=== PATIENT | female | born 1965 | race Caucasian/White ===

== ENCOUNTER → 2017-09-08 | Outpatient (CLI) | payer BC ==
[2017-09-08 09:23] VITALS: BP 112/65; PULSE 63; TEMP 96.9; BMI 23.5
--- NOTE | 2017-09-08 10:01 | P.HPOB ---
History of Present Illness H&P Date: 09/08/17 Chief Complaint: The patient is here for her routine gynecologic exam and mammogram. This is a 52-year-old G3 PIII with an LMP of 08/13/2017. Her 's status post vasectomy. She is here to establish with this office. The patient's menses are monthly but can fluctuate by up to one week. Her periods are french comber since her endometrial ablation done approximately in 2007. She is without gynecologic complaints. Review of Systems The patient's weight has been stable over the last year. She denies respiratory , cardiac, or G.I. problems. Past Medical History Additional Past Medical History / Comment(s): Pituitary adenoma since about [address] Reanna Rodriguez. 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 She has been using Pristiq for PMDD/PMS. She status post endometrial ablation. History of Any Multi-Drug Resistant Organisms: None Reported Past Surgical History: No Surgical Hx Reported, Ablation (Endometrial 2007), Breast Surgery (Saline implants) Additional Past Surgical History / Comment(s): LASIK eye surgery, foot surgery. Additional Psychological History / Comment(s): PMDD/PMS Smoking Status: Former smoker (Quit in her 20s) Past Alcohol Use History: Occasional (Less than one per week) Past Drug Use History: None Reported Additional History: She has been since 2015 and this is her 2nd marriage. 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. - Past Family History Mother Family Medical History: No Reported History Additional Family Medical History / Comment(s): Maternal aunt and maternal grandmother had breast cancer. Medications and Allergies Home Medications Medication Instructions Recorded Confirmed Type Desloratadine/Pseudoephedrine 1 tab PO DAILY 11/30/16 09/08/17 History [Clarinex-D 12 Hour Tablet] Dhea 5mg 5 mg PO DAILY 11/30/16 09/08/17 History Dostinex 0.5mg 0.5 mg PO SA 11/30/16 09/08/17 History Multivitamins, Thera [Multivitamin 1 tab PO DAILY 11/30/16 09/08/17 History (formulary)] [place]-3 Acid Ethyl Esters [Lovaza] 2 gm PO BID 11/30/16 09/08/17 History metroNIDAZOLE [Flagyl] 250 mg PO TID 11/30/16 09/08/17 History ALPRAZolam [Xanax] mg PO PRN 09/08/17 History Desvenlafaxine Succinate [Pristiq] mg PO DAILY 09/08/17 History Allergies Allergy/AdvReac Type Severity Reaction Status Date / Time No Known Allergies Allergy Verified 11/30/16 10:50 Exam Vital Signs Temp Pulse BP 09/08/17 09:17 96.9 F L 63 112/65 Intake and Output 09/07/17 09/08/17 09/08/17 22:59 06:59 14:59 Other: Weight 62.142 kg Height 5'4", BMI 23.5. This is a well-developed well-nourished white female who is alert and oriented times 3 in no acute distress. HEENT: Within normal limits. NECK: Supple without mass or thyromegaly. CHEST AND LUNGS: Clear to auscultation. HEART: Regular rate and rhythm. BREASTS: Are without mass or discharge. Breasts are consistent with bilateral implants. AXILLARY EXAM: Negative for adenopathy. BACK: Negative for CVA tenderness. ABDOMEN: Soft, nontender, without palpable masses. PELVIC EXAM: Normal external genitalia. Cervix and vagina appear normal with minimal atrophy. There is no unusual discharge. There is no evidence of prolapse. The uterus is midposition, nongravid size and nontender. There are no palpable adnexal masses or tenderness. RECTAL EXAM: rectovaginal exam is negative for mass or tenderness and is negative for occult blood. EXTREMITIES: Nontender. IMPRESSION: 1. 60-year-old premenopausal female with normal gynecologic exam who is status post endometrial ablation. 2. The patient's is status post vasectomy. 3. History of pituitary adenoma controlled with medication and followed by Dr. Reanna Rodriguez. PLAN: 1. Pap smear was performed. 2. Self breast awareness was discussed. 3. Screening mammogram will be done today. 4. Osteoporosis prevention was discussed. 5. I have recommended screening colonoscopy based on her age. She states she will absolutely by her primary care office. 6. She will return in one year.
--- NOTE | 2017-09-09 11:34 | MM ---
Reason for exam: screening (asymptomatic). Last mammogram was performed 1 year and 7 months ago. History: Family history of breast cancer in maternal grandmother and breast cancer in maternal aunt at age 60. Saline implants in both breasts, 2002. Took hormonal contraceptives for 5 years. Physical Findings: A clinical breast exam by your physician is recommended on an annual basis and results should be correlated with mammographic findings. MG Screening Mammo Implant/CAD Bilateral CC, MLO, and ID view(s) were taken. Prior study comparison: February 05, 2016, bilateral MG screening mammo implant/CAD. December 26, 2014, bilateral MG 3d diag mammo imp w/cad IGNACIO. The breast tissue is heterogeneously dense. This may lower the sensitivity of mammography. No suspicious abnormality. Bilateral retropectoral saline implants. No significant changes when compared with prior studies. ASSESSMENT: Negative, BI-RAD 1 RECOMMENDATION: Routine screening mammogram of both breasts in 1 year.
== END | disposition home or self-care (01) ==
LOC: WWCWWP 08:54
PROVIDERS: ATTEND Obstetrics & Gynecology
DX: Z12.31 Encounter for screening mammogram for malignant neoplasm of breast (principal)
CPT/HCPCS: 77067

== ENCOUNTER → 2018-03-07 | Outpatient (CLI) | payer BC ==
--- NOTE | 2018-03-07 15:07 | US ---
EXAMINATION TYPE: US mass soft tissue chest/back DATE OF EXAM: 03/07/2018 COMPARISON: NONE CLINICAL HISTORY: 53-year-old female R19.09 intra-abdominal and pelvic swelling, mass and lump. TECHNIQUE: Multiple sonographic images targeted to the palpable site along the right anterior thoraco abdominal junction. FINDINGS: Incident Response Engineer notes: Patient has a superficial, palpable abnormality along the right anterior thoracoab dominal junction measuring 1.5 x 0.3 x 1.0cm. This appears to be ovoid and heterogeneous echogenic wi th some posterior through transmission. It appears centered within the subcutaneous adipose layer. IMPRESSION: A circumscribed 1.5 x 1.0 cm echogenic lesion centered in the subcutaneous adipose layer at the patie nt's palpable site, right anterior thoracoabdominal junction. Findings suggest possible subcutaneous lipoma. Surgical excision can be considered if the site is symptomatic or growth is noted.
== END | disposition home or self-care (01) ==
LOC: RADUSWWP 10:51
PROVIDERS: ATTEND Family Medicine
DX: R19.09 Other intra-abdominal and pelvic swelling, mass and lump (principal)

== ENCOUNTER 2018-12-26 13:21 | Emergency (ER) | payer BC, OTHER ==
[2018-12-26 13:28] VITALS: BP 136/88; PULSE 91; RESP 20; TEMP 97.8
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
== END 2018-12-26 14:10 | disposition home or self-care (01) ==
LOC: EC 13:21
DX: S00.12XA Contusion of left eyelid and periocular area, initial encounter (principal); Z87.891 Personal history of nicotine dependence; Z86.018 Personal history of other benign neoplasm; W22.8XXA Striking against or struck by other objects, initial encounter; Y92.69 Other specified industrial and construction area as the place of occurrence of the external cause; Y99.0 Civilian activity done for income or pay
CPT/HCPCS: 99283

== ENCOUNTER → 2019-01-19 | Outpatient (CLI) | payer BC ==
--- NOTE | 2019-01-20 14:17 | MM ---
Reason for exam: screening (asymptomatic). Last mammogram was performed 1 year and 4 months ago. History: Family history of breast cancer in maternal grandmother and breast cancer in maternal aunt at age 60. Saline implants in both breasts, 2002. Took hormonal contraceptives for 5 years. Physical Findings: A clinical breast exam by your physician is recommended on an annual basis and results should be correlated with mammographic findings. MG 3D Screen Mammo Imp/Cad Bilateral CC, MLO, and ID view(s) were taken. Prior study comparison: September 08, 2017, bilateral MG screening mammo implant/CAD. February 05, 2016, bilateral MG screening mammo implant/CAD. The breast tissue is extremely dense which could obscure a lesion on mammography. Asymmetric breast tissue in the left inferior breast, stable. There is no discrete abnormality. Bilateral implants redemonstrated. ASSESSMENT: Benign, BI-RAD 2 RECOMMENDATION: Routine screening mammogram of both breasts in 1 year.
== END ==
LOC: RADMAMWWP 13:10
PROVIDERS: ATTEND Obstetrics & Gynecology
DX: Z12.31 Encounter for screening mammogram for malignant neoplasm of breast (principal); Z98.82 Breast implant status
CPT/HCPCS: 77063; 77067

== ENCOUNTER → 2019-02-06 | Outpatient (CLI) | payer BC ==
--- NOTE | 2019-02-06 15:36 | MR ---
EXAMINATION TYPE: MR pituitary wo/w con DATE OF EXAM: 02/06/2019 COMPARISON: NONE HISTORY: 54-year-old female Hyperprolactinemia Technique: Multiplanar, multisequence images of the sella were obtained before and after administrati on of 6 mL intravenous Gadavist gadolinium contrast. FINDINGS: The sella turcica is not enlarged. The pituitary gland is of normal size in the sagittal and coronal planes. There is a T2 hyperintense cystic versus hypoenhancing lesion within the posterior pituitary along th e midline measuring 3 x 3 x 4 mm. The pituitary stalk is seen enhancing with contrast and shows no abnormal displacement. The optic chi asm and anterior third ventricle are well visualized and not displaced or compressed. IMPRESSION: A 3 x 3 x 4 mm lesion within the mid posterior pituitary. Differential considerations include a Rathk e's cleft cyst or a pituitary microadenoma.
== END | disposition home or self-care (01) ==
LOC: RADMRIMAIN 10:49
PROVIDERS: ATTEND Internal Medicine
DX: G93.89 Other specified disorders of brain (principal); E22.1 Hyperprolactinemia
CPT/HCPCS: 70553; A9585

== ENCOUNTER → 2020-07-16 | Outpatient (CLI) | payer BC ==
--- NOTE | 2020-07-16 15:51 | US ---
EXAMINATION TYPE: US carotid duplex BILAT DATE OF EXAM: 07/16/2020 COMPARISON: NONE CLINICAL HISTORY: Z86.73 PERSONAL HX IF TIA. No HTN. EXAM MEASUREMENTS: RIGHT: Peak Systolic Velocity (PSV) cm/sec ----- Right CCA: 103.0 ----- Right ICA: 95.1 ----- Right ECA: 72.1 ICA/CCA ratio: 0.9 RIGHT: End Diastole cm/sec ----- Right CCA: 30.5 ----- Right ICA: 36.9 ----- Right ECA: 13.9 LEFT: Peak Systolic Velocity (PSV) cm/sec ----- Left CCA: 104.0 ----- Left ICA: 103.0 ----- Left ECA: 81.5 ICA/CCA ratio: 1.0 LEFT: End Diastole cm/sec ----- Left CCA: 32.0 ----- Left ICA: 41.8 ----- Left ECA: 11.5 VERTEBRALS (direction of flow): Right Vertebral: Antegrade Left Vertebral: Antegrade Rhythm: Normal No significant atherosclerotic plaque. No hemodynamically significant elevated velocities. No signif icant stenosis. IMPRESSION: 1. Less than 50% stenosis of the bilateral internal carotid arteries. No evidence of hemodynamically significant stenosis. Criteria for Assigning % of Stenosis / Diameter reduction (Estimation based on the indirect measurements of the internal carotid artery velocities (ICA PSV). 1. Normal (no stenosis)=ICA PSV < 125 cm/s: ratio < 2.0: ICA EDV<40 cm/s. 2. Less than 50% stenosis=ICA PSV < 125 cm/s: ratio < 2.0: ICA EDV<40 cm/s. 3. 50 to 69% stenosis=ICA PSV of 125 to 230 cm/s: ration 2.0 ? 4.0: ICA EDV 40-100 cm/s. 4. Greater than 70% stenosis to near occlusion= ICA PSV > 230 cm/s: ratio > 4.0: ICA EDV > 100 cm/s. 5. Near occlusion= ICA PSV velocities may be low or undetectable: variable ratio and ICA EDV. 6. Total occlusion=unable to detect flow.
--- NOTE | 2020-07-16 17:19 | ECHOF ---
Referral Reason:Z86.73 Personal history of transient ischemic regino MEASUREMENTS -------- HEIGHT: 162.6 cm WEIGHT: 56.7 kg BP: RVIDd: 2.2 cm (< 3.3) IVSd: 0.9 cm (0.6 - 1.1) LVIDd: 3.3 cm (3.9 - 5.3) LVPWd: 0.9 cm (0.6 - 1.1) IVSs: 1.3 cm LVIDs: 2.1 cm LVPWs: 1.2 cm LA Diam: 2.4 cm (2.7 - 3.8) Ao Diam: 2.6 cm (2.0 - 3.7) AV Cusp: 1.8 cm (1.5 - 2.6) MV EXCURSION: 16.941 mm (> 18.000) MV EF SLOPE: 87 mm/s (70 - 150) EPSS: 0.4 cm MV E Rudi: 0.78 m/s MV DecT: 296 ms MV A Rudi: 0.90 m/s MV E/A Ratio: 0.86 RAP: 5.00 mmHg RVSP: 22.70 mmHg FINDINGS -------- Sinus rhythm. This was a technically good study. The left ventricular size is normal. Left ventricular wall thickness is normal. Overall left vent ricular systolic function is normal with, an EF between 60 - 65 %. The right ventricle is normal in size. The left atrium is normal in size. The right atrium is normal in size. Interatrial and interventricular septum intact. The aortic valve is trileaflet, and appears structurally normal. No aortic stenosis or regurgitation. The mitral valve leaflets are mildly thickened. Mild tricuspid regurgitation present. Right ventricular systolic pressure is normal at < 35 mmHg. The pulmonic valve was not well visualized. The aortic root size is normal. Normal inferior vena cava with normal inspiratory collapse consistent with estimated right atrial pre ssure of 5 mmHg. There is no pericardial effusion. CONCLUSIONS -------- 1. The left ventricular size is normal. 2. Left ventricular wall thickness is normal. 3. Overall left ventricular systolic function is normal with, an EF between 60 - 65 %. 4. The aortic valve is trileaflet, and appears structurally normal. No aortic stenosis or regurgitati on. 5. The mitral valve leaflets are mildly thickened. 6. Mild tricuspid regurgitation present. 7. There is no pericardial effusion. BUTCHERETTE: Millie Soto RDCS
== END | disposition home or self-care (01) ==
LOC: RADECHMAIN 14:02
PROVIDERS: ATTEND Family Medicine
DX: Z09 Encounter for follow-up examination after completed treatment for conditions other than malignant neoplasm (principal)
CPT/HCPCS: 93306; 93880

== ENCOUNTER → 2020-08-20 | Outpatient (CLI) | payer BC | END | disposition home or self-care (01) | DX: Z12.31 Encounter for screening mammogram for malignant neoplasm of breast (principal); Z80.3 Family history of malignant neoplasm of breast | CPT/HCPCS: 77063; 77067 ==

== ENCOUNTER 2020-08-29 21:26 | Emergency (ER) | payer BC ==
[2020-08-29 21:37] VITALS: TEMP 98
[2020-08-29] MEDS ORDERED: ADENOSINE 3 MG/ML 2 ML VIAL IVP STA (21:43)
[2020-08-29] MEDS ORDERED: SODIUM CHLORIDE 0.9% 500 ML 500 ML IV STA ×2 (21:43→22:54)
--- NOTE | 2020-08-29 21:44 | ED ---
Arrhythmia/Palpitations HPI - General Chief Complaint: Arrhythmia/Palpitations Stated Complaint: Rapid heart rate Time Seen by Provider: 08/29/20 21:43 Source: patient, EMS Mode of arrival: EMS Limitations: no limitations - History of Present Illness Initial Comments: This patient is a 55-year-old woman who developed constellation of symptoms approximately 2 hours ago. She first noted onset of rapid heartbeat, followed quickly by lightheadedness, dyspnea, chest pressure and anxiety. She also developed nausea with no vomiting and then had tingling to the bilateral extremities. Patient's family member works for [employer], and the patient consulted with her. 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 I reportedly tried vagal maneuvers which did not slow her heart rate and then presented here for further evaluation and treatment. Patient stated that the racing heart rate had improved markedly shor tly after arriving here but prior to my seeing her. She states all of the symptoms are subsequently resolving as well MD Complaint: "heart racing" Onset/Timin -: hour(s) Context: occurred during rest Associated Symptoms: chest pain, shortness of breath, near-syncope, anxiety - Related Data Home Medications Medication Instructions Recorded Confirmed Dhea 5mg 5 mg PO DAILY 11/30/16 08/29/20 Multivitamins, Thera [Multivitamin 1 tab PO DAILY 11/30/16 08/29/20 (formulary)] Cutler-3 Acid Ethyl Esters [Lovaza] 2 gm PO BID 11/30/16 08/29/20 ALPRAZolam [Xanax] 0.5 mg PO HS PRN 08/29/20 08/29/20 Aspirin EC [Ecotrin Low Dose] 81 mg PO HS 08/29/20 08/29/20 Baclofen 10 mg PO HS 08/29/20 08/29/20 Baclofen [Lioresal] 10 mg PO DIRECTED 08/29/20 08/29/20 Desvenlafaxine Succinate [Pristiq] 100 mg PO DAILY 08/29/20 08/29/20 Melatonin 5 mg PO HS PRN 08/29/20 08/29/20 Progesterone, Micronized 100 mg PO HS 08/29/20 08/29/20 [Progesterone] Allergies Allergy/AdvReac Type Severity Reaction Status Date / Time No Known Allergies Allergy Verified 08/29/20 22:09 Review of Systems ROS Statement: Those systems with pertinent positive or pertinent negative responses have been documented in the HPI. ROS Other: All systems not noted in ROS Statement are negative. Constitutional: Denies: fever, chills Respiratory: Reports: as per HPI, dyspnea. Denies: cough, wheezes Cardiovascular: Reports: as per HPI, chest pain, palpitations. Denies: orthopnea, edema, syncope Gastrointestinal: Denies: abdominal pain, nausea, vomiting, diarrhea Genitourinary: Denies: dysuria, hematuria Musculoskeletal: Denies: back pain Skin: Denies: rash Neurological: Denies: headache, weakness, numbness Psychiatric: Reports: anxiety Past Medical History Past Medical History: No Reported History Additional Past Medical History / Comment(s): Pituitary adenoma since about [address] Reanna Rodriguez. 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 She has been using Pristiq for PMDD/PMS. She status post endometrial ablation. History of Any Multi-Drug Resistant Organisms: None Reported Past Surgical History: No Surgical Hx Reported, Ablation, Breast Surgery Additional Past Surgical History / Comment(s): LASIK eye surgery, foot surgery. Past Psychological History: No Psychological Hx Reported Smoking Status: Former smoker Past Alcohol Use History: Occasional Past Drug Use History: None Reported - Past Family History Mother Family Medical History: No Reported History Additional Family Medical History / Comment(s): Maternal aunt and maternal grandmother had breast cancer. General Exam General appearance: alert, anxious Head exam: Present: atraumatic, normocephalic Eye exam: Present: normal appearance. Absent: scleral icterus, conjunctival injection ENT exam: Present: normal oropharynx Neck exam: Present: normal inspection Respiratory exam: Present: normal lung sounds bilaterally. Absent: respiratory distress, wheezes, rales, rhonchi, stridor, accessory muscle use Cardiovascular Exam: Present: normal rhythm, tachycardia (Rate approximately 108 at my exam), normal heart sounds. Absent: systolic murmur, diastolic murmur, rubs, gallop GI/Abdominal exam: Present: soft. Absent: distended, tenderness, guarding, rebound, rigid, mass Extremities exam: Present: normal inspection, normal capillary refill. Absent: pedal edema, calf tenderness Back exam: Present: normal inspection. Absent: CVA tenderness (R), CVA tenderness (L) Neurological exam: Present: alert Skin exam: Present: warm, dry, intact, normal color. Absent: rash Course Vital Signs 08/29/20 08/29/20 08/29/20 21:31 22:00 22:37 Temperature 98.0 F Pulse Rate 170 H 101 H 104 H Respiratory 22 20 20 Rate Blood Pressure 117/98 109/91 123/89 O2 Sat by Pulse 100 100 100 Oximetry 08/29/20 23:57 Temperature Pulse Rate 86 Respiratory 20 Rate Blood Pressure 136/92 O2 Sat by Pulse 95 Oximetry EKG Findings - EKG Results: EKG: interpreted by KEND EKG shows: tachycardia (Rate 171 bpm) - Dysrhythmias: Ventricular dysrhythmias: sustained ventricular tachycardia - Blocks, [place], Hypertrophy, ST Abn: QRS axis and voltage: left axis deviation (-30 to -90) Repolarization changes or abnormalities: nonspecific abnormality, ST segment, and/or T wave Medical Decision Making - Lab Data Result diagrams: 08/29/20 21:49 08/29/20 21:49 Lab Results 08/29/20 08/29/20 08/29/20 Range/Units 21:49 21:49 21:49 WBC 8.0 (3.8-10.6) k/uL RBC 5.10 (3.80-5.40) m/uL Hgb 15.9 (11.4-16.0) gm/dL Hct 47.8 H (34.0-46.0) % MCV 93.7 (80.0-100.0) fL MCH 31.2 (25.0-35.0) pg MCHC 33.3 (31.0-37.0) g/dL RDW 12.6 (11.5-15.5) % Plt Count 338 (150-450) k/uL MPV 7.4 Neutrophils % 62 % Lymphocytes % 27 % Monocytes % 6 % Eosinophils % 2 % Basophils % 1 % Neutrophils # 4.9 (1.3-7.7) k/uL Lymphocytes # 2.2 (1.0-4.8) k/uL Monocytes # 0.4 (0-1.0) k/uL Eosinophils # 0.1 (0-0.7) k/uL Basophils # 0.1 (0-0.2) k/uL PT 10.2 (9.0-12.0) sec INR 0.9 (<1.2) APTT 25.9 (22.0-30.0) sec Sodium (137-145) mmol/L Potassium (3.5-5.1) mmol/L Chloride (98-107) mmol/L Carbon Dioxide (22-30) mmol/L Anion Gap mmol/L BUN (7-17) mg/dL Creatinine (0.52-1.04) mg/dL Est GFR (CKD-EPI)AfAm (>60 ml/min/1.73 sqM) Est GFR (CKD-EPI)NonAf (>60 ml/min/1.73 sqM) Glucose (74-99) mg/dL Calcium (8.4-10.2) mg/dL Magnesium (1.6-2.3) mg/dL Total Bilirubin (0.2-1.3) mg/dL AST (14-36) U/L ALT (4-34) U/L Alkaline Phosphatase (38-126) U/L Troponin I (0.000-0.034) ng/mL Total Protein (6.3-8.2) g/dL Albumin (3.5-5.0) g/dL TSH (0.465-4.680) mIU/L Urine Opiates Screen Not Detected (NotDetected) Ur Oxycodone Screen Not Detected (NotDetected) Urine Methadone Screen Not Detected (NotDetected) Ur Propoxyphene Screen Not Detected (NotDetected) Ur Barbiturates Screen Not Detected (NotDetected) U Tricyclic Antidepress Not Detected (NotDetected) Ur Phencyclidine Scrn Not Detected (NotDetected) Ur Amphetamines Screen Not Detected (NotDetected) U Methamphetamines Scrn Not Detected (NotDetected) U Benzodiazepines Scrn Not Detected (NotDetected) Urine Cocaine Screen Not Detected (NotDetected) U Marijuana (THC) Screen Not Detected (NotDetected) Serum Alcohol mg/dL 08/29/20 08/29/20 08/29/20 Range/Units 21:49 21:49 23:04 WBC (3.8-10.6) k/uL RBC (3.80-5.40) m/uL Hgb (11.4-16.0) gm/dL Hct (34.0-46.0) % MCV (80.0-100.0) fL MCH (25.0-35.0) pg MCHC (31.0-37.0) g/dL RDW (11.5-15.5) % Plt Count (150-450) k/uL MPV Neutrophils % % Lymphocytes % % Monocytes % % Eosinophils % % Basophils % % Neutrophils # (1.3-7.7) k/uL Lymphocytes # (1.0-4.8) k/uL Monocytes # (0-1.0) k/uL Eosinophils # (0-0.7) k/uL Basophils # (0-0.2) k/uL PT (9.0-12.0) sec INR (<1.2) APTT (22.0-30.0) sec Sodium 139 (137-145) mmol/L Potassium 3.6 (3.5-5.1) mmol/L Chloride 103 (98-107) mmol/L Carbon Dioxide 24 (22-30) mmol/L Anion Gap 12 mmol/L BUN 12 (7-17) mg/dL Creatinine 0.99 (0.52-1.04) mg/dL Est GFR (CKD-EPI)AfAm 76 (>60 ml/min/1.73 sqM) Est GFR (CKD-EPI)NonAf 66 (>60 ml/min/1.73 sqM) Glucose 244 H (74-99) mg/dL Calcium 10.4 H (8.4-10.2) mg/dL Magnesium 2.3 (1.6-2.3) mg/dL Total Bilirubin 0.2 (0.2-1.3) mg/dL AST 68 H (14-36) U/L ALT 32 (4-34) U/L Alkaline Phosphatase 109 (38-126) U/L Troponin I <0.012 (0.000-0.034) ng/mL Total Protein 7.9 (6.3-8.2) g/dL Albumin 5.2 H (3.5-5.0) g/dL TSH 1.920 (0.465-4.680) mIU/L Urine Opiates Screen (NotDetected) Ur Oxycodone Screen (NotDetected) Urine Methadone Screen (NotDetected) Ur Propoxyphene Screen (NotDetected) Ur Barbiturates Screen (NotDetected) U Tricyclic Antidepress (NotDetected) Ur Phencyclidine Scrn (NotDetected) Ur Amphetamines Screen (NotDetected) U Methamphetamines Scrn (NotDetected) U Benzodiazepines Scrn (NotDetected) Urine Cocaine Screen (NotDetected) U Marijuana (THC) Screen (NotDetected) Serum Alcohol <10 mg/dL - EKG Data -: EKG Interpreted by Sc EKG shows normal: axis (Normal), intervals (Normal), QRS complexes (Normal), ST- T waves (Normal) Rate: tachycardia (Rate 106 bpm) Interpretation: other (Repeat ECG shows patient has reverted to sinus rhythm) Disposition Clinical Impression: SVT (supraventricular tachycardia) Disposition: HOME SELF-CARE Condition: Good Instructions (If sedation given, give patient instructions): Supraventricular Tachycardia (ED) Is patient prescribed a controlled substance at d/c from ED?: No Referrals: Stephen Hall MD [Primary Care Provider] - 1-2 days Aldair Ramirez MD [STAFF PHYSICIAN] - 1-2 days
[2020-08-29 21:59] LABS: Basophils # (A) 0.1 k/uL (0-0.2); Basophils % (A) 1 %; Eosinophils # (A) 0.1 k/uL (0-0.7); Eosinophils % (A) 2 %; HCT 47.8 % (34.0-46.0); HGB 15.9 gm/dL (11.4-16.0); Lymphocytes # (A) 2.2 k/uL (1.0-4.8); Lymphocytes % (A) 27 %; MCH 31.2 pg (25.0-35.0); MCHC 33.3 g/dL (31.0-37.0); MCV 93.7 fL (80.0-100.0); Mean Platelet Volume 7.4; Monocytes # (A) 0.4 k/uL (0-1.0); Monocytes % (A) 6 %; Neutrophils # (A) 4.9 k/uL (1.3-7.7); Neutrophils % (A) 62 %; Platelet Count 338 k/uL (150-450); RDW 12.6 % (11.5-15.5)
[2020-08-29 22:08] LABS: Potassium 3.6 mmol/L (3.5-5.1)
[2020-08-29 22:09] LABS: Albumin 5.2 g/dL (3.5-5.0); Calcium 10.4 mg/dL (8.4-10.2); Magnesium 2.3 mg/dL (1.6-2.3); Total Bilirubin 0.2 mg/dL (0.2-1.3); Total Protein 7.9 g/dL (6.3-8.2)
[2020-08-29 22:25] LABS: INR 0.9 (<1.2); Partial Thromboplastin Time 25.9 sec (22.0-30.0); Prothrombin Time 10.2 sec (9.0-12.0)
--- NOTE | 2020-08-29 22:43 | XR ---
EXAMINATION TYPE: XR chest 1V portable DATE OF EXAM: 08/29/2020 COMPARISON: NONE HISTORY: Dysrhythmia TECHNIQUE: Single view FINDINGS: Right and mediastinum are normal. Lungs are clear. Bony thorax is intact. Pulmonary vascula rity is normal. There is mild flattening of the diaphragm. IMPRESSION: No active cardiopulmonary disease. There is probably some COPD.
[2020-08-29 23:22] LABS: Amphetamine Screen,Urine Not Detected (NotDetected); Barbiturate Screen,Urine Not Detected (NotDetected); Benzodiazepines Screen,Urine Not Detected (NotDetected); Cocaine Screen,Urine Not Detected (NotDetected); Methadone Screen, Urine Not Detected (NotDetected); Opiate Screen,Urine Not Detected (NotDetected); Oxycodone Screen, Urine Not Detected (NotDetected); Phencyclidine Screen,Urine Not Detected (NotDetected); Tricyclic Antidepressant,Urine Not Detected (NotDetected); Urn Cannabinoid Scrn Not Detected (NotDetected)
[2020-08-29 23:56] VITALS: RESP 20
[2020-08-29 23:57] VITALS: BP 136/92; PULSE 86
== END 2020-08-29 23:58 | disposition home or self-care (01) ==
LOC: EC 21:26
DX: I47.1 Supraventricular tachycardia (principal); R07.89 Other chest pain; Z87.891 Personal history of nicotine dependence
CPT/HCPCS: 36415; 71045; 80053; 80306; 80320; 83735; 84443; 84484; 85025; 85610; 85730; 93005; 96360; 99285

== ENCOUNTER → 2020-08-30 | Outpatient (CLI) | payer BC ==
--- NOTE | 2020-09-01 13:43 | MR ---
EXAMINATION TYPE: MR brain wo con DATE OF EXAM: 08/30/2020 COMPARISON: MRI pituitary 02/06/2019 HISTORY: Possible stroke, memory loss, dizziness, history of bilateral weakness and numbness. CONTRAST: Performed utilizing 0 mL intravenous Gadavist gadolinium contrast. TECHNIQUE: Multiplanar, multiecho imaging on a 3.0 Ingrid magnet is performed through the brain. Stud y is performed within 24 hours of arrival to the hospital. The craniovertebral junction is normal. There may be a subtle hypodensity within the mid pituitary sagittal inversion recovery sequence image s. If additional closer more sensitive evaluation would be of benefit, follow-up pituitary MRI could be performed. This area may be present in retrospect on the 02/06/2019 exam. Optic chiasm appears nor mal. Diffusion-weighted imaging is performed. No abnormal hyperintensity is present to suggest an acute i ntracranial infarct or acute ischemic change. No suspicious signal abnormality is evident. Normal vascular flow voids are present. Orbits appear un remarkable. Ventricles and sulci are appropriate for the patient age. IMPRESSIONS: 1. Normal pre and postcontrast. MRI brain. 2. Subtle hypodensity identified within the pituitary may have been present on comparison MRI pituita ry 2019, if additional evaluation would be of benefit, pituitary study with contrast could be perform ed to reevaluate this region.
== END | disposition home or self-care (01) ==
LOC: RADMRIMAIN 17:18
PROVIDERS: ATTEND Psychiatry & Neurology Neurology
DX: R41.82 Altered mental status, unspecified (principal)
CPT/HCPCS: 70551

== ENCOUNTER → 2021-09-26 | Outpatient (CLI) | payer BC ==
--- NOTE | 2021-09-29 08:21 | MM ---
Reason for Exam: Screening (asymptomatic). Last mammogram was performed 1 year(s) and 1 month(s) ago. Patient History: Menarche at age 16. First Full-Term at age 22. Postmenopausal. Patient has history of breast feeding. Currently using Progesterone, starting at age 53. Hormonal Contraceptives for 5 years until age 27. 2003, Bilateral Implants. Maternal grandmother had breast cancer. Maternal aunt had breast cancer, age 60. Risk Values: Allyson 5 year model risk: 0.9%. NCI Lifetime model risk: 6.9%. Prior Study Comparison: 02/05/2016 Bilateral Screening Mammogram, [facility]. 09/08/2017 Bilateral Screening Mammogram, [facility]. 01/19/2019 Bilateral Screening Mammogram, [facility]. 08/20/2020 Bilateral Screening Mammogram, [facility]. Tissue Density: The breast tissue is heterogeneously dense. This may lower the sensitivity of mammography. Findings: Analyzed By CAD. There is no suspicious group of microcalcifications or new suspicious mass in either breast. Bilateral retropectoral saline implants. No significant change from prior exams. Overall Assessment: Benign, BI-RAD 2 Management: Screening Mammogram of both breasts in 1 year. A clinical breast exam by your physician is recommended on an annual basis and results should be correlated with mammographic findings. Electronically signed and approved by: Efe Currie D.O.
== END | disposition home or self-care (01) ==
LOC: RADMAMWWP 12:43
PROVIDERS: ATTEND Obstetrics & Gynecology
DX: Z12.31 Encounter for screening mammogram for malignant neoplasm of breast (principal)
CPT/HCPCS: 77067

== ENCOUNTER 2021-11-04 10:11 | Day surgery (SDC) | payer BC ==
[2021-11-03 10:24] VITALS: BMI 23.1
[~2021-11-04 10:11] MED LIST: LACTATED RINGERS 1,000 ML IV SCH
[2021-11-04 11:09] VITALS: TEMP 98.6
[2021-11-04] MEDS ORDERED: LIDOCAINE 1% (10MG/ML) FOR IV START INTRADERMA ONE (11:09)
[2021-11-04] MEDS ORDERED: LIDOCAINE 2% INJ 20 MG/ML (2 ML VIAL) ONE (11:51)
[2021-11-04] MEDS ORDERED: PROPOFOL 10 MG/ML 20 ML VIAL IV ONE (11:51)
--- NOTE | 2021-11-04 12:12 | P.PCN ---
Date of Procedure: 11/04/21 Procedure(s) Performed: BRIEF HISTORY: Patient is a a 6-year-old pleasant white female scheduled for an elective colonoscopy as a part of screening for colorectal neoplasia. PROCEDURE PERFORMED: Colonoscopy. PREOPERATIVE DIAGNOSIS: Screening for colon cancer. IV sedation per Anesthesia. PROCEDURE: After informed consent was obtained, the patient, was brought into the endoscopy unit. IV sedation was administered by Anesthesia under continuous monitoring. Digital rectal examination was normal. Initially the Olympus CF-160 flexible video colonoscope was then inserted in the rectum, gradually advanced into the cecum without any difficulty. Careful examination was performed as the scope was gradually being withdrawn. Ileocecal valve and the appendiceal orifice were visualized and appeared normal. Prep was excellent. Mucosa of the cecum, ascending colon, transverse colon, descending colon, sigmoid colon, and rectum appeared normal. Retroflexion was performed in the rectum and internal hemorrhoids were seen. The patient tolerated the procedure well. IMPRESSION: Normal-appearing colon from rectum to cecum no evidence of colorectal neoplasia. Small internal hemorrhoids. RECOMMENDATIONS: Findings of this examination were discussed with the patient as well as her family. She was advised to have a repeat screening colonoscopy in 10 years..
[2021-11-04 12:19] VITALS: RESP 20
[2021-11-04 12:33] VITALS: BP 123/78; PULSE 73
== END 2021-11-04 12:49 ==
LOC: ORWHC2ENDO 10:11
PROVIDERS: ATTEND Internal Medicine Gastroenterology
DX: Z12.11 Encounter for screening for malignant neoplasm of colon (principal); K64.8 Other hemorrhoids; E78.5 Hyperlipidemia, unspecified; Z87.891 Personal history of nicotine dependence; Z79.899 Other long term (current) drug therapy; Z86.39 Personal history of other endocrine, nutritional and metabolic disease
CPT/HCPCS: 45378; J2704; J2001

== ENCOUNTER → 2023-04-26 | Outpatient (CLI) | payer BC ==
--- NOTE | 2023-04-28 14:16 | MM ---
Reason for Exam: Screening (asymptomatic). Last mammogram was performed 1 year(s) and 7 month(s) ago. Patient History: Menarche at age 16. First Full-Term at age 22. Postmenopausal. Patient has history of breast feeding. Currently using Progesterone, starting at age 53. Hormonal Contraceptives for 5 years until age 27. 2003, Bilateral Implants. Maternal grandmother had breast cancer. Maternal aunt had breast cancer, age 60. Risk Values: Allyson 5 year model risk: 1.0%. NCI Lifetime model risk: 6.6%. Prior Study Comparison: 01/19/2019 Bilateral Screening Mammogram, [facility]. 08/20/2020 Bilateral Screening Mammogram, [facility]. 09/26/2021 Bilateral MG screening mammo implant/CAD, [facility]. Tissue Density: There are scattered areas of fibroglandular density. Findings: Analyzed By CAD. Bilateral breast implants appear intact. There is no suspicious group of microcalcifications or new suspicious mass. Overall Assessment: Benign, BI-RAD 2 Management: Screening Mammogram of both breasts in [address] [facility] will attempt to contact patient to return for supplemental views and ultrasound if indicated. Patient should continue monthly self-breast exams. A clinical breast exam by your physician is recommended on an annual basis. This exam should not preclude additional follow-up of suspicious palpable abnormalities. Note on Allyson scores and lifetime risk: 1. A Allyson score greater than 3% is considered moderate risk. If this is the case, consider specialist referral to assess eligibility for a risk reducing agent. 2. If overall lifetime risk for the development of breast cancer is 20% or higher, the patient may qualify for future screening with alternating mammogram and breast MRI. Electronically signed and approved by: Marty Millan DO
== END | disposition home or self-care (01) ==
LOC: RADMAMWWP 14:38
PROVIDERS: ATTEND Obstetrics & Gynecology
DX: Z12.31 Encounter for screening mammogram for malignant neoplasm of breast (principal); Z78.0 Asymptomatic menopausal state
CPT/HCPCS: 77067